=== PATIENT | female | born 1960 | race Caucasian/White ===

== ENCOUNTER 2022-05-17 10:33 | Emergency (ER) | payer BC ==
[2022-05-17] MEDS ORDERED: Sodium Chloride 0.9% 10 ML Syringe FLUSH PRN (11:01)
[2022-05-17 11:38] LABS: ESTIMATED GFR 58 mL/min (>60)
[2022-05-17] MEDS ORDERED: Sodium Chloride 0.9% 10 ML SDV FLUSH ONE (11:39)
[2022-05-17] MEDS ORDERED: Iopamidol 755 Mg/ML 100 ML Bottle IV SCH (11:45)
[2022-05-17] MEDS ORDERED: Sodium Chloride 0.9% 100 ML IV SCH (11:45)
== END 2022-05-17 13:19 | disposition home or self-care (01) ==
LOC: JP.ED 10:33
DX: G51.0 Bell's palsy (principal)
CPT/HCPCS: 36415; 70450; 70496; 70498; 76377; 80048; 82947; 85025; 99283; 99284; J3490; Q9967

== ENCOUNTER 2023-04-09 06:03 | Day surgery (SDC) | payer BC ==
[2023-04-09] MEDS ORDERED: Midazolam 1 MG/ML 2 ML SDV ONE (07:18)
[2023-04-09] MEDS ORDERED: fentaNYL 50 MCG/ML SDV ONE (07:18)
[2023-04-09] MEDS ORDERED: Propofol 200 MG/20 ML SDV ONE (07:19)
[2023-04-09] MEDS ORDERED: Lactated Ringers 1,000 ML IV SCH (08:30)
== END 2023-04-09 09:15 | disposition home or self-care (01) ==
LOC: JP.SDS 06:03
PROVIDERS: ATTEND Student in an Organized Health Care Education/Training Program
DX: K31.7 Polyp of stomach and duodenum (principal); K21.9 Gastro-esophageal reflux disease without esophagitis; K44.9 Diaphragmatic hernia without obstruction or gangrene; E78.5 Hyperlipidemia, unspecified; E66.9 Obesity, unspecified; Z68.38 Body mass index [BMI] 38.0-38.9, adult
CPT/HCPCS: 43239; 93005; J2250; J2704; J3010; J7120; 88305

== ENCOUNTER 2023-04-16 07:56 | Observation (INO) | payer BC ==
[~2023-04-16 07:56] MED LIST: Bupivacaine 0.5%/EPINEPHrine 1:200,000 50 ML MDV ONE
[2023-04-16] MEDS ORDERED: Acetaminophen 500 MG Tab PO ONE (08:15)
[2023-04-16] MEDS ORDERED: fentaNYL 250 MCG/5 ML SDV ONE ×2 (08:18→10:59)
[2023-04-16] MEDS ORDERED: Propofol 200 MG/20 ML SDV ONE (08:19)
[2023-04-16] MEDS ORDERED: Succinylcholine 200 MG/10 ML MDV ONE (08:19)
[2023-04-16] MEDS ORDERED: Neostigmine Methylsulfate 10 MG/10 ML MDV ONE (08:19)
[2023-04-16] MEDS ORDERED: Rocuronium 50 MG/5 ML Vial ONE (08:19)
[2023-04-16] MEDS ORDERED: Glycopyrrolate 0.2 MG/ML 5 ML MDV ONE (08:19)
[2023-04-16] MEDS ORDERED: Dexamethasone 4 MG/ML SDV ONE (08:19)
[2023-04-16] MEDS ORDERED: Ondansetron 4 MG/2 ML SDV ONE (08:19)
[2023-04-16] MEDS ORDERED: Indocyanine Green 25 MG SDV IV ONE (09:00)
[2023-04-16] MEDS: Sodium Chloride 0.9% 1,000 ML IV SCH ×2 (09:14→21:57)
[2023-04-16] MEDS ORDERED: cefTRIAXone 2 GM in Sodium Chloride 0.9% 50 ML IV ONE (09:30)
[2023-04-16] MEDS ORDERED: metroNIDAZOLE/Normal Saline 500 MG in Premix Bag 1 BAG IV ONE (10:00)
[2023-04-16] MEDS ORDERED: Labetalol 20 MG/4 ML Syringe ONE (11:11)
[2023-04-16] MEDS ORDERED: hydrALAZINE 20 MG/ML SDV ONE (11:43)
[2023-04-16] MEDS ORDERED: Lactated Ringers 1,000 ML ONE (11:53)
[2023-04-16] MEDS ORDERED: Scopalamine 1mg/3day Transdermal Patch TRDERM PRN (13:04)
[2023-04-16] MEDS ORDERED: Acetaminophen/HYDROcodone 325-5 MG Tab PO PRN (13:05)
[2023-04-16] MEDS ORDERED: Ondansetron 4 MG/2 ML SDV IVPUSH PRN (13:05)
[2023-04-16] MEDS ORDERED: Sennosides/Docusate Sodium 50-8.6 MG Tab PO PRN (13:05)
[2023-04-16] MEDS ORDERED: Prochlorperazine 10 MG/2 ML SDV IVPUSH ONE (17:29)
[2023-04-17 05:50] LABS: HEMATOCRIT 32.1 % (34.3-46.0); HEMOGLOBIN 10.6 g/dL (11.2-15.5); MEAN CORPUSCULAR HEMOGLOBIN 29.3 pg (31.6-35.5); MEAN CORPUSCULAR VOLUME 88.7 fL (81.4-99.0); RED BLOOD CELL COUNT 3.62 M/uL (3.77-5.24); WHITE BLOOD CELL COUNT,WBC 8.7 K/uL (3.2-11.0)
[2023-04-17 06:05] LABS: INR 1.1; PROTHROMBIN TIME 10.8 sec (9.2-10.6)
[2023-04-17 06:10] LABS: ALANINE AMINOTRANSFERASE,ALT 24 U/L (12-78); ALBUMIN 3.3 g/dL (3.4-5.0); ALKALINE PHOSPHATASE 62 U/L (46-116); ASPARTATE AMNIOTRANSFERASE,AST 20 U/L (15-37); BILIRUBIN TOTAL 0.6 mg/dL (0.2-1.0); BLOOD UREA NITROGEN,BUN 18 mg/dL (7-18); CALCIUM 8.1 mg/dL (8.5-10.1); CARBON DIOXIDE,CO2 22 mmol/L (21-32); CHLORIDE,CL 106 mmol/L (100-108); CREATININE 1.1 mg/dL (0.6-1.0); EST CRCL DRUG DOSING (CG) 48.33 mL/min; ESTIMATED GFR 57 mL/min (>60); GLUCOSE RANDOM 101 mg/dL (74-106); POTASSIUM,K 4.3 mmol/L (3.6-5.2); PROTEIN TOTAL,TP 6.6 g/dL (6.4-8.2); SODIUM,NA 139 mmol/L (140-148)
[2023-04-17 06:13] LABS: MAGNESIUM 1.9 mg/dL (1.8-2.4); PHOSPHORUS 3.8 mg/dL (2.5-4.9)
[2023-04-17 06:14] LABS: ANION GAP 15.3 mmol/L (5.0-14.0)
[2023-04-17] MEDS ORDERED: Pantoprazole 40 MG Tab.CR PO SCH (09:00)
[2023-04-17] MEDS ORDERED: Amoxicillin/Clavulanate K 875-125 MG Tab PO SCH (09:15)
== END 2023-04-17 16:50 | disposition home or self-care (01) ==
LOC: INTOOBSV 07:56 → JP.SDSSCHI 07:56 → JP.2SS 13:05
PROVIDERS: ADMIT Student in an Organized Health Care Education/Training Program; ATTEND Student in an Organized Health Care Education/Training Program
DX: K80.00 Calculus of gallbladder with acute cholecystitis without obstruction (principal); E78.5 Hyperlipidemia, unspecified; K21.9 Gastro-esophageal reflux disease without esophagitis; N18.30 Chronic kidney disease, stage 3 unspecified; Z79.899 Other long term (current) drug therapy; Z98.890 Other specified postprocedural states
CPT/HCPCS: 36415; 80053; 83735; 84100; 85027; 85610; 93005; 96374; 96375; A9270-GY; G0378; J0330; J0360; J0696; J0780; J1100; J1836; J2405; J2704; J2710; J3010; J3490; J7030; J7120